=== PATIENT | female | born 1980 | race Caucasian/White ===

== ENCOUNTER 2021-12-29 15:21 | Outpatient (CLI) | payer OTHER, SELFPAY ==
--- NOTE | 2021-12-29 15:29 | MM_ITS ---
WS: [id number] BILATERAL 3D TOMOSYNTHESIS DIGITAL SCREENING MAMMOGRAPHY WITH CAD CLINICAL INFORMATION: SCREENING HISTORY: Screening mammogram. No current complaints. Baseline. COMPARISON: None. TECHNIQUE: Bilateral CC and MLO views. FINDINGS: The breasts are composed of heterogeneous fibroglandular density tissue, which can limit the detectio n of small underlying mass lesions. No suspicious mass, asymmetry, calcifications, or architectural d istortion. No evidence of malignancy. MM/[place] [id number] IMPRESSION: BI-RADS: 1-Negative FOLLOW UP: 1 Year Follow-up Recommend return to annual screening mammography.
== END 2021-12-29 15:22 | disposition home or self-care (01) ==
PROVIDERS: PCP Nurse Practitioner; Visit Provider Nurse Practitioner
DX: Z12.31 Encounter for screening mammogram for malignant neoplasm of breast (principal)
CPT/HCPCS: 77063; 77067

== ENCOUNTER 2022-08-24 13:53 | Outpatient (RCR) | payer OTHER, SELFPAY | END 2022-09-20 23:59 | disposition home or self-care (01) | LOC: SPT 13:53 | PROVIDERS: Visit Provider Nurse Practitioner | DX: M54.16 Radiculopathy, lumbar region (principal) | CPT/HCPCS: 97110; 97161 ==

== ENCOUNTER 2022-09-21 06:00 | Outpatient (RCR) | payer OTHER, SELFPAY | END 2022-10-21 23:59 | disposition home or self-care (01) | LOC: SPT 06:00 | PROVIDERS: Visit Provider Nurse Practitioner | DX: M54.18 Radiculopathy, sacral and sacrococcygeal region (principal) | CPT/HCPCS: 97110 ==

== ENCOUNTER 2023-03-29 08:14 | Outpatient (CLI) | payer OTHER, SELFPAY ==
--- NOTE | 2023-03-29 08:17 | MM_ITS ---
WS: [id number] SCREENING DIGITAL TOMOSYNTHESIS MAMMOGRAM WITH CAD HISTORY: SCREENING COMPARISON: 12/29/2021 Bilateral CC and MLO with tomosynthesis views submitted. Synthetic mammography reviewed. Computer aid ed detection analyzed. Breast composition: There are scattered areas of fibroglandular density. No suspicious masses, microc alcifications or architectural distortion. Benign calcification anterior LEFT breast. IMPRESSION: MM/[id number] BI-RADS: 2-Benign FOLLOW UP: 1 Year Follow-up
== END 2023-03-29 08:15 | disposition home or self-care (01) ==
LOC: RAD 08:15
PROVIDERS: PCP Nurse Practitioner; Visit Provider Nurse Practitioner
DX: Z12.31 Encounter for screening mammogram for malignant neoplasm of breast (principal)
CPT/HCPCS: 77063; 77067

== ENCOUNTER 2024-04-17 13:22 | Emergency (ER) | payer OTHER, SELFPAY ==
[2024-04-17 13:26] VITALS: BP 145/92; PULSE 93; RESP 17; TEMP 36.8; O2SAT 98; BMI 36.1
--- NOTE | 2024-04-17 13:31 | CT_ITS ---
WS: [id number] CT HEAD NONCONTRAST HISTORY: Symptoms of acute stroke TECHNIQUE: Contiguous axial imaging performed through the brain. Bone and soft tissue windows. Sagitt al and coronal reformats reviewed. All CT scans at [facility] use at least one of these dose optimization techniques: automated exposure control; mA and/or kV adjustment per patient size (includ es targeted exams where dose is matched to clinical indication); or iterative reconstruction. DLP: 1121.24 mGy COMPARISON: None available. No acute intracranial hemorrhage, midline shift or mass effect. No atrophy or prior infarcts or herniation. Focal calcification along the anterior interhemispheric f jane. Could be a calcified small meningioma. Ventricles: Normal size with no hydrocephalus. Paranasal sinuses: As visualized are clear. Mastoid air cells: Well pneumatized. Calvarium and scalp: Skull is intact with no soft tissue edema or swelling. CT/CT head thrombolytic [id number] IMPRESSION: Negative head CT. Notified Deven Mariano DO at 04/17/2024 1:58 PM.
--- NOTE | 2024-04-17 13:31 | ECG_ITS ---
[facility] [place] [facility] Date: 2024-04[facility]17 Pat Name: Susie Hankins Department: Room: Gender: Female Fiber Optic Assembler: : 1980 Requested By: Deven Machado Order Number: [id number] Reading MD: TRAM TIAN Measurements Intervals [place] Rate: 79 P: 37 UT: 153 QRS: 21 QRSD: 96 T: 31 QT: 341 QTc: 393 Interpretive Statements SINUS RHYTHM No previous ECG available for comparison Electronically Signed On 04-17-2024 18:53:02 CLOTH CALENDER by TRAM TIAN [email or web address]
[2024-04-17 13:54] VITALS: BP 164/107; PULSE 86; O2SAT 99
--- NOTE | 2024-04-17 14:00 | ED_ITS ---
HPI - Neuro Symptoms/Deficit 2 General: Chief Complaint: Neuro Symptoms/Deficit Stated Complaint: stroke like symp. Time Seen by Provider: 04/17/24 13:31 History of Present Illness: 44-year-old female presents emergency ro om complaining of severe dizziness feeling wobbly. She has true vertiginous like symptoms. It is better when she lays down. She denies any difficulty speech or swallowing. Initial evaluation her NIH score is 0 Associated symptoms: Deny chest pain Related Data Home Medications Medication Instructions Recorded Confirmed bupropion HCl 300 mg 24 hr tablet, 300 mg PO QAM 04/17/24 04/17/24 extended release dextromethorphan-guaifenesin ER 60 1 tab PO Q12H PRN cough and 04/17/24 04/17/24 mg-1,200 mg tab,extend congestion release,12hr (Mucinex DM) gabapentin 300 mg capsule 300 mg PO TID 04/17/24 04/17/24 hydroxyzine pamoate 50 mg capsule 50 mg PO BEDTIME PRN Insomnia 04/17/24 04/17/24 methylphenidate HCl 10 mg tablet See Rx Instructions .Route .COMPLEX 04/17/24 04/17/24 naproxen sodium 220 mg tablet 220 mg PO BID PRN Pain 04/17/24 04/17/24 (Aleve) sumatriptan succinate 100 mg tablet 100 mg PO Q2H PRN Headache 04/17/24 04/17/24 Previous Rx's Medication Instructions Recorded lorazepam 1 mg tablet (Ativan) 1 mg PO BID PRN dizziness or 04/17/24 vertigo #20 tabs meclizine 25 mg tablet 25 mg PO QID PRN dizziness #20 tabs 04/17/24 Allergies Allergy/AdvReac Type Severity Reaction Status Date / Time mercury (elemental) Allergy ALGY-Anaphy Verified 04/17/24 13:29 laxis Review of Systems 2 Const: Denies: fever(s) or chills Card: Denies: chest pain Resp: Denies: dyspnea GI: Denies: abdominal pain : Denies: dysuria, urinary frequency or urinary urgency Musc: Denies: neck pain or back pain Skin/Breast: Denies: rash NIH stroke score 2 NIHSS: Level Of Consciousness - 1a: 0 Level Of Consciousness Questions - 1b: Both Correct Level Of Consciousness Commands - 1c: Both Correct Best Gaze - 2: Normal Visual Maldonado - 3: No Visual Loss Facial Palsy - 4: N ormal Motor Arm Right - 5: No Drift Motor Arm Left - 5: No Drift Motor Leg Right - 6: No Drift Motor Leg Left - 6: No Drift Limb Ataxia - 7: A bsent Sensory - 8: Normal Best Language - 9: No Aphasia Extinction And Inattention - 11: 0 Physical Exam 2 Const: COMMON NORMALS: no acute distress GENERAL APPEARANCE: cooperative and comfortable ORIENTATION/CONSCIOUSNESS: Yes awake, Yes oriented to person, Yes oriented to place and Yes oriented to time HENMT: COMMON NORMALS: normocephalic, atraumatic and hearing grossly normal bilaterally HEAD & SCALP: normocephalic and atraumatic Resp: COMMON NORMALS: normal respiratory effort, No retractions, No use of accessory muscles and clear to auscultation bilaterally AUSCULTATION: clear to auscultation bilaterally Cardio: COMMON NORMALS: regular rate, regular rhythm and No murmurs present (Cardio) RATE: regular rate RHYTHM: regular rhythm GI: COMMON NORMALS: Soft to palpation and No hepatosplenomegaly present A USCULTATION: Yes normoactive bowel sounds PALPATION: Yes Soft to palpation, No Tenderness to palpation present (GI), No Guarding due to palpation present (GI) and Yes No hepatosplenomegaly present Extremity: COMMON NORMALS: normal to inspection, capillary refill normal, no clubbing, cyanosis or edema, no calf tenderness and no pedal edema Neuro: SENSORIUM/ORIENTATION: Yes oriented to person, Yes oriented to place and Yes oriented to time Skin: COMMON NORMALS: no rashes or lesions noted GENERAL SKIN EXAM: no rashes or lesions noted Course 2 Vital Signs: Vital signs: Vital Signs Temperature 98.3 F 04/17/24 13:26 Pulse Rate 79 04/17/24 16:33 Respiratory Rate 17 04/17/24 13:26 Blood Pressure 151/102 04/17/24 16:33 Pulse Oximetry 96 04/17/24 16:33 Oxygen Delivery Me thod Room Air 04/17/24 16:17 MDM - Neuro Symptoms/Deficit Medical Decision Making Patient is able to stand at the bedside and perform her Romberg's. No ataxia. She was able to ambulate without difficulty CT did not show any significant abnormality will discharge patient home treated for labyrinthitis she was given lorazepam and meclizine to use as needed follow-up with her primary care doctor. Lab Data 04/17/24 13:57 04/17/24 13:[address] 04/17/24 13:31 IMPRESSION: Negative head CT. Notified Deven Mariano DO at 04/17/2024 1:58 PM. Laboratory Results WBC 5.40 10^3/uL (3.29-11.43) 04/17/24 13:57 RBC 4.77 10^6/uL (3.85-5.65) 04/17/24 13:57 Hgb 12.20 g/dL (11.27-16.99) 04/17/24 13:57 Hct 38.7 % (36-47) 04/17/24 13:57 MCV 81.1 fl (85-98) L 04/17/24 13:57 MCH 25.6 pg (27-33) L 04/17/24 13:57 MCHC 31.5 g/dL (30-55) 04/17/24 13:57 RDW 16.1 % (12.1-15.1) H 04/17/24 13:57 Plt Count 323 10^3/cmm (157-399) 04/17/24 13:57 MPV 9.0 fL (7.4-10.4) 04/17/24 13:57 Neut % (Auto) 55.3 % 04/17/24 13:57 Lymph % (Auto) 32.6 % 04/17/24 13:57 [place]aves % (Auto) 7.8 % 04/17/24 13:57 Eos % (Auto) 3.0 % 04/17/24 13:57 Baso % (Auto) 1.1 % 04/17/24 13:57 Neut # (Auto) 2.99 10^3/uL (1.8-7.7) 04/17/24 13:57 Lymph # (Auto) 1.8 10^3/uL (0.8-4.8) 04/17/24 13:57 Chaves # (Auto) 0.4 10^3/uL (0.2-0.9) 04/17/24 13:57 Eos # (Auto) 0.2 10^3/uL (0.0-0.8) 04/17/24 13:57 Baso # (Auto) 0.1 10^3/uL (0.0-0.1) 04/17/24 13:57 Nucleated RBC % (auto) 0 % 04/17/24 13:57 Nucleated RBCs # 0.0 /100WBC 04/17/24 13:57 PT 12.70 SECONDS (12.1-14.9) 04/17/24 13:57 INR 0.92 (0.8-1.2) 04/17/24 13:57 APTT 27.0 SECONDS (23.9-36.7) 04/17/24 13:57 Sodium 139 mmol/L (136-145) 04/17/24 13:57 Potassium 3.6 mmol/L (3.5-5.1) 04/17/24 13:57 Chloride 103 mmol/L (98-107) 04/17/24 13:57 Carbon Dioxide 26 mmol/L (22-29) 04/17/24 13:57 Anion Gap 13.6 (5-19) 04/17/24 13:57 BUN 9 mg/dL (6-20) 04/17/24 13:57 Creatinine 0.9 mg/dL (0.5-0.9) 04/17/24 13:57 GFR Calculation 68.0 mL/min (90-130) L 04/17/24 13:57 Glucose 87 mg/dL (65-115) 04/17/24 13:57 POC Glucose 76 mg/dL (70-110) 04/17/24 13:32 Calculated Osmolality 286 mOsm/kg (285-295) 04/17/24 13:57 Calcium 8.7 mg/dL (8.5-10.5) 04/17/24 13:57 Total Bilirubin 0.4 mg/dL (0.15-1.2) 04/17/24 13:57 AST 15 U/L (0-32) 04/17/24 13:57 ALT 14 U/L (0-33) 04/17/24 13:57 Alkaline Phosphatase 65 U/L (35-105) 04/17/24 13:57 Total Protein 6.4 g/dL (6.6-8.7) L 04/17/24 13:57 Albumin 3.8 g/dL (3.5-5.2) 04/17/24 13:57 Globulin 2.6 g/dL (1.3-4.6) 04/17/24 13:57 Urine Color Yellow (Yellow) 04/17/24 16:19 Urine Appearance Clear (CLEAR) 04/17/24 16:19 Urine pH 6.5 (5-7) 04/17/24 16:19 Ur Specific [place] 1.007 (1.005-1.030) 04/17/24 16:19 Urine Protein Negative (Negative) 04/17/24 16:19 Urine Glucose (UA) Negative (Normal) 04/17/24 16:19 Urine Ketones Negative (Negative) 04/17/24 16:19 Urine Blood Negative (Negative) 04/17/24 16:19 Urine Nitrate Negative (Negative) 04/17/24 16:19 Urine Bilirubin Negative (Negative) 04/17/24 16:19 Urine Urobilinogen 1.0 mg/dL (Negative) 04/17/24 16:19 Ur Leukocyte Esterase Negative (Negative) 04/17/24 16:19 Urine RBC 0-2 /hpf (0-2) 04/17/24 16:19 Urine WBC 0-5 /hpf (0-5) 04/17/24 16:19 Ur Squamous Epith Cells 0-5 /hpf (0-5) 04/17/24 16:19 Amorphous Sediment Not Reportable 04/17/24 16:19 Urine Bacteria Trace /hpf (NONE) 04/17/24 16:19 Hyaline Casts 0-4 /lpf H 04/17/24 16:19 Urine Opiates Screen Negative ng/mL (Negative) 04/17/24 16:19 Ur Barbiturates Screen Negative ng/mL (Negative) 04/17/24 16:19 Ur Phencyclidine Scrn Negative ng/mL (Negative) 04/17/24 16:19 Ur Amphetamines Screen Negative ng/mL (Negative) 04/17/24 16:19 U Benzodiazepines Scrn Negative ng/mL (Negative) 04/17/24 16:19 Urine Cocaine Screen Negative ng/mL (Negative) 04/17/24 16:19 U Marijuana (THC) Screen Negative ng/mL (Negative) 04/17/24 16:19 All radiology interpretation(s) finalized by discharge Discharge Plan Discharge Patient Disposition: Home Clinical Impression: Labyrinthitis Condition: Stable Prescriptions: New lorazepam [Ativan] 1 mg tablet 1 mg PO BID PRN (Reason: dizziness or vertigo) Qty: 20 0RF meclizine 25 mg tablet 25 mg PO QID PRN (Reason: dizziness) Qty: 20 0RF No Action methylphenidate HCl 10 mg Tablet See Rx Instructions .ROUTE .COMPLEX Rx Instructions: Take 2 10 mg tablets in the am and 1 10mg tab at 12pm by mouth daily sumatriptan succinate 100 mg Tablet 100 mg PO Q2H PRN (Reason: Headache) Rx Instructions: do not exceed 2 doses per 24 hrs hydroxyzine pamoate 50 mg Capsule 50 mg PO BEDTIME PRN (Reason: Insomnia) naproxen sodium [Aleve] 220 mg Tablet 220 mg PO BID PRN (Reason: Pain) gabapentin 300 mg Capsule 300 mg PO TID dextromethorphan-guaifenesin [Mucinex DM] 60-1,200 mg Tablet Extended Release 12 Hr 1 tab PO Q12H PRN (Reason: cough and congestion ) bupropion HCl 300 mg Tablet Extended Release 24 Hr 300 mg PO QAM Discharge Orders: Discharge ED (Routine); Ordered 04/17/24 Ordered By: Deven Mariano Referrals: [place] Hutchinson FNP [Primary Care Provider] - Discharge Diet: Usual diet Discharge Activity: Increase activity as tolerated Patient Instructions: Labyrinthitis, Opioid Safety, Pain Management Activity Restrictions/Additional Instructions: Thank you for choosing [facility] for your healthcare needs today. It is very important that you follow up as instructed or that you return to the Emergency Department should you have concerns or if your condition changes or worsens in any way. You are seen in the emergency room for dizziness. There is no sign of a stroke CT of the head was negative. Suspect you may have in her ear issues which are causing the dizziness. We gave you Ativan and meclizine to use as needed if symptoms persist follow-up with your primary care doctor they can refer you was felt appropriate. Coding Level of Care Code ED Quarter Seamer for Demetrius Alvarez
[2024-04-17 14:08] LABS: Basophils # 0.1 10^3/uL (0.0-0.1); Basophils % 1.1 %; Eosinophils # 0.2 10^3/uL (0.0-0.8); Hematocrit 38.7 % (36-47); Lymphocytes # 1.8 10^3/uL (0.8-4.8); Lymphocytes % 32.6 %; Mean Corpuscular HGB Conc 31.5 g/dL (30-55); Mean Corpuscular Hemoglobin 25.6 pg (27-33); Mean Corpuscular Volume 81.1 fl (85-98); Monocytes # 0.4 10^3/uL (0.2-0.9); Monocytes % 7.8 %; Neutrophils # 2.99 10^3/uL (1.8-7.7); Neutrophils % 55.3 %; Nucleated Red Blood Cells % 0 %; Platelet Count 323 10^3/cmm (157-399); Red Blood Count 4.77 10^6/uL (3.85-5.65); Red Cell Distribution Width 16.1 % (12.1-15.1)
[2024-04-17 14:26] LABS: Alanine Aminotransferase 14 U/L (0-33); Albumin Level 3.8 g/dL (3.5-5.2); Alkaline Phosphatase 65 U/L (35-105); Anion Gap 13.6 (5-19); Aspartate Amino Transferase 15 U/L (0-32); Blood Urea Nitrogen 9 mg/dL (6-20); Calcium 8.7 mg/dL (8.5-10.5); Carbon Dioxide 26 mmol/L (22-29); Chloride 103 mmol/L (98-107); Creatinine Clr Calc Pharmacy 86.2003; Globulin 2.6 g/dL (1.3-4.6); Glucose 87 mg/dL (65-115); INR 0.92 (0.8-1.2); Osmolality Calculated 286 mOsm/kg (285-295); Potassium 3.6 mmol/L (3.5-5.1); Sodium 139 mmol/L (136-145); Total Bilirubin 0.4 mg/dL (0.15-1.2); Total Protein 6.4 g/dL (6.6-8.7)
[2024-04-17 14:58] VITALS: PULSE 85; O2SAT 94
--- NOTE | 2024-04-17 15:58 | PC.NURSE ---
PER VERBAL ORDER FROM DR. BARGER, ORDER AND ADMINISTER MECLIZINE 25 MG PO ONCE
[2024-04-17] MEDS: meclizine 25 mg tablet PO (16:14)
[2024-04-17 16:17] VITALS: BP 151/102; PULSE 79; O2SAT 99
[2024-04-17 16:30] LABS: Bilirubin Urine Negative (Negative); Blood Urine Negative (Negative); Glucose Urine UA Negative (Normal); Ketones Urine Negative (Negative); Leukocyte Esterase Urine Negative (Negative); Nitrate Urine Negative (Negative); Protein Urine Negative (Negative); Specific Gravity, Urine 1.007 (1.005-1.030); Urine Appearance Clear (CLEAR); Urine Color Yellow (Yellow); pH Urine 6.5 (5-7)
[2024-04-17 16:33] VITALS: BP 151/102; PULSE 79; O2SAT 96
[2024-04-17 16:35] LABS: Add Urine Microscopic? YES; Amphetamines Screen Urine Negative (Negative); Bacteria Urine Trace /hpf; Barbiturates Screen Urine Negative (Negative); Benzodiazepines Screen Urine Negative (Negative); Cocaine Screen Urine Negative (Negative); Hyaline Casts Urine 0-4 /lpf; Opiate Screen Urine Negative (Negative); PCP Screen Urine Negative (Negative); RBC Urine 0-2 /hpf (0-2); Squamous Epithelial Cell Urine 0-5 /hpf (0-5); THC Screen Urine Negative (Negative); WBC Urine 0-5 /hpf (0-5)
[2024-04-19 12:08] LABS: Glucose Point of Care 76 mg/dL (70-110)
== END 2024-04-17 16:35 | disposition home or self-care (01) ==
PROVIDERS: Emergency Provider Family Medicine; PCP Nurse Practitioner
DX: H83.09 Labyrinthitis, unspecified ear (principal)
CPT/HCPCS: 36415; 36416; 70450; 80053; 80306; 81001; 82962; 85025; 85610; 85730; 93005; 99284; J8597

== ENCOUNTER 2024-09-04 08:23 | Emergency (ER) | payer OTHER, SELFPAY ==
[2024-09-04 08:27] VITALS: BP 118/82; PULSE 75; RESP 16; TEMP 36.8; O2SAT 99; BMI 36.8
--- NOTE | 2024-09-04 08:31 | XRR_ITS ---
XR/XR forearm LT 2V [id number] PROCEDURE INFORMATION: Exam: XR Left Forearm Exam date and time: 09/04/2024 8:40 AM Age: 44 years old Clinical indication: Injury or trauma; Fall; Blunt trauma (contusions or hematomas); Arm, lower; Left TECHNIQUE: Imaging protocol: Radiologic exam of the left forearm. Views: 2 views. COMPARISON: CR XR wrist LT min 3V* [id number] 09/04/2024 8:39 AM FINDINGS/IMPRESSION: Bones/joints: There is a nondisplaced, comminuted fracture through the distal left radial metaphysis. No definite intra-articular extension of the fracture lines. There is normal alignment of the radiocarpal joint space. The proximal left radius is intact. The left ulna is intact. There is normal alignment of the left elbow. No evidence of a left elbow fracture or effusion. The carpal bones appear intact. Soft tissues: Normal.
--- NOTE | 2024-09-04 08:31 | XRR_ITS ---
XR/XR wrist LT min 3V* [id number] PROCEDURE INFORMATION: Exam: XR Left Wrist Exam date and time: 09/04/2024 8:39 AM Age: 44 years old Clinical indication: Injury or trauma; Fall; Blunt trauma (contusions or hematomas); Wrist; Left TECHNIQUE: Imaging protocol: Radiologic exam of the left wrist. Views: 3 or more views. COMPARISON: No relevant prior studies available. FINDINGS/IMPRESSION: Bones/joints: There is a comminuted, fracture through the distal left radial metaphysis. Fracture lines do not appear to involve the left radiocarpal joint space. The carpal bones are intact. The visualized portions of the left metacarpals are unremarkable. Soft tissues: Normal.
--- NOTE | 2024-09-04 08:50 | W.ED.EXTPRO ---
HPI - Extremity Problem General: Chief complaint: Extremity Injury, Upper Stated complaint: Left arm injury Time Seen by Provider: 09/04/24 08:38 History of Present Illness: 44-year-old female stumbled while gardening and has pain in her left arm. She has bruising to her forearm. She denies any other injuries when she fell. She denies any other injury. Associated symptoms: Deny chest pain, fever(s) or rash Related Data Home Medications ?Medication ?Instructions ?Recorded ?Confirmed bupropion HCl 300 mg 24 hr tablet, 300 mg PO QAM 04/17/24 09/04/24 extended release dextromethorphan-guaifenesin ER 60 1 tab PO Q12H PRN cough and 04/17/24 09/04/24 mg-1,200 mg tab,extend congestion release,12hr (Mucinex DM) gabapentin 300 mg capsule 300 mg PO TID 04/17/24 09/04/24 hydroxyzine pamoate 50 mg capsule 50 mg PO BEDTIME PRN Insomnia 04/17/24 09/04/24 methylphenidate HCl 10 mg tablet See Rx Instructions .Route .COMPLEX 04/17/24 09/04/24 naproxen sodium 220 mg tablet 220 mg PO BID PRN Pain 04/17/24 09/04/24 (Aleve) sumatriptan succinate 100 mg tablet 100 mg PO Q2H PRN Headache 04/17/24 09/04/24 Previous Rx's ?Medication ?Instructions ?Recorded hydrocodone 5 mg-acetaminophen 325 1 tab PO Q6H PRN pain #12 tabs 09/04/24 mg tablet Allergies Allergy/AdvReac Type Severity Reaction Status Date / Time mercury (elemental) Allergy ALGY-Anaphy Verified 04/17/24 13:29 laxis Review of Systems Const: Denies: fever(s) or chills Card: Denies: chest pain Resp: Denies: dyspnea GI: Denies: abdominal pain : Denies: dysuria, urinary frequency or urinary urgency Musc: Reports: joint pain and joint swelling; Denies: neck pain or back pain Skin/Breast: Denies: rash Physical Exam Const: COMMON NORMALS: no acute distress GENERAL APPEARANCE: cooperative and comfortable ORIENTATION/CONSCIOUSNESS: Yes awake, Yes oriented to person, Yes oriented to place and Yes oriented to time HENMT: COMMON NORMALS: normocephalic, atraumatic and hearing grossly normal bilaterally HEAD & SCALP: normocephalic and atraumatic Resp: COMMON NORMALS: normal respiratory effort, No retractions, No use of accessory muscles and clear to auscultation bilaterally AUSCULTATION: clear to auscultation bilaterally Cardio: COMMON NORMALS: regular rate, regular rhythm and No murmurs present (Cardio) RATE: regular rate RHYTHM: regular rhythm GI: COMMON NORMALS: Soft to palpation and No hepatosplenomegaly present AUSCULTATION: Yes normoactive bowel sounds PALPATION: Yes Soft to palpation, No Tenderness to palpation present (GI), No Guarding due to palpation present (GI) and Yes No hepatosplenomegaly present Extremity: COMMON NORMALS: capillary refill normal, no clubbing, cyanosis or edema, no calf tenderness and no pedal edema OTHER: Examination of the left wrist patient has moderate swelling at the wrist joint itself radial and ulnar pulses normal sensation normal capillary refill normal patient is able to flex and extend the finger which precipitates mild discomfort at the wrist itself Neuro: SENSORIUM/ORIENTATION: Yes oriented to person, Yes oriented to place and Yes oriented to time Skin: COMMON NORMALS: no rashes or lesions noted GENERAL SKIN EXAM: no rashes or lesions noted Course Vital Signs: Vital signs: Vital Signs Temperature 98.3 F 09/04/24 08:27 Pulse Rate 81 09/04/24 09:53 Respiratory Rate 16 09/04/24 08:27 Blood Pressure 115/79 09/04/24 09:53 Pulse Oximetry 98 09/04/24 09:53 Oxygen Delivery Me thod Room Air 09/04/24 08:27 MDM - Extremity (Nontraumatic) Medical Decision Making Acute distal radius fracture minimally displaced mildly comminuted appears stable at this time patient placed in a sugar-tong in a sling given pain medications follow-up with orthopedics for definitive care return if has further problems neuro exam time patient seen was normal I did check to cast just prior to discharge he still has good capillary refill cast is in good position adequately isolates the fracture Medical Records I reviewed the patient's medical records. Lab Data I reviewed the patient's lab results. Radiology Impressions Forearm X-Ray 09/04/24 08:31 PROCEDURE INFORMATION: Exam: XR Left Forearm Exam date and time: 09/04/2024 8:40 AM Age: 44 years old Clinical indication: Injury or trauma; Fall; Blunt trauma (contusions or hematomas); Arm, lower; Left TECHNIQUE: Imaging protocol: Radiologic exam of the left forearm. Views: 2 views. COMPARISON: CR XR wrist LT min 3V* [id number] 09/04/2024 8:39 AM FINDINGS/IMPRESSION: Bones/joints: There is a nondisplaced, comminuted fracture through the distal left radial metaphysis. No definite intra-articular extension of the fracture lines. There is normal alignment of the radiocarpal joint space. The proximal left radius is intact. The left ulna is intact. There is normal alignment of the left elbow. No evidence of a left elbow fracture or effusion. The carpal bones appear intact. Soft tissues: Normal. Wrist X-Ray 09/04/24 08:31 PROCEDURE INFORMATION: Exam: XR Left Wrist Exam date and time: 09/04/2024 8:39 AM Age: 44 years old Clinical indication: Injury or trauma; Fall; Blunt trauma (contusions or hematomas); Wrist; Left TECHNIQUE: Imaging protocol: Radiologic exam of the left wrist. Views: 3 or more views. COMPARISON: No relevant prior studies available. FINDINGS/IMPRESSION: Bones/joints: There is a comminuted, fracture through the distal left radial metaphysis. Fracture lines do not appear to involve the left radiocarpal joint space. The carpal bones are intact. The visualized portions of the left metacarpals are unremarkable. Soft tissues: Normal. All radiology interpretation(s) finalized by discharge Discharge Plan Discharge Patient Disposition: Home Clinical Impression: Closed fracture of left distal radius Condition: Stable Prescriptions: New hydrocodone-acetaminophen 5-325 mg tablet 1 tab PO Q6H PRN (Reason: pain) Qty: 12 0RF No Action methylphenidate HCl 10 mg Tablet See Rx Instructions .ROUTE .COMPLEX Rx Instructions: Take 20 mg by mouth in the am and 10mg tab at 12pm by mouth daily sumatriptan succinate 100 mg Tablet 100 mg PO Q2H PRN (Reason: Headache) Rx Instructions: do not exceed 2 doses per 24 hrs hydroxyzine pamoate 50 mg Capsule 50 mg PO BEDTIME PRN (Reason: Insomnia) naproxen sodium [Aleve] 220 mg Tablet 220 mg PO BID PRN (Reason: Pain) gabapentin 300 mg Capsule 300 mg PO TID dextromethorphan-guaifenesin [Mucinex DM] 60-1,200 mg Tablet Extended Release 12 Hr 1 tab PO Q12H PRN (Reason: cough and congestion ) bupropion HCl 300 mg Tablet Extended Release 24 Hr 300 mg PO QAM Discharge Orders: Discharge ED (Routine); Ordered 09/04/24 Ordered By: Deven Mariano Referrals: [place] Hutchinson, TRACK VEHICLE REPAIRER [Primary Care Provider] - Discharge Diet: Usual diet Discharge Activity: Limit activity as instructed Patient Instructions: Opioid Safety, Pain Management Activity Restrictions/Additional Instructions: Thank you for choosing [facility] for your healthcare needs today. It is very important that you follow up as instructed or that you return to the Emergency Department should you have concerns or if your condition changes or worsens in any way. Case management will make arrangements for you to follow-up with orthopedics. Avoid use of the left arm keep splint in place until released by orthopedics. Print Language: [place] Islander Coding Level of Care Code ED Vice President Of Talent Management for Demetrius Alvarez
--- NOTE | 2024-09-04 09:17 | DCPLANNER ---
messaged ortho for er f/u
[2024-09-04] MEDS: ketorolac 60 mg/2 mL INJ IM (09:33)
[2024-09-04 09:53] VITALS: BP 115/79; PULSE 81; O2SAT 98
== END 2024-09-04 09:58 | disposition home or self-care (01) ==
PROVIDERS: Emergency Provider Family Medicine; PCP Nurse Practitioner
DX: S52.502A Unspecified fracture of the lower end of left radius, initial encounter for closed fracture (principal); W19.XXXA Unspecified fall, initial encounter
CPT/HCPCS: 73090; 73110; 96372; 99284; J1885

== ENCOUNTER → 2024-09-07 13:06 | Outpatient (BNVA) | payer OTHER, SELFPAY | PROVIDERS: PCP Nurse Practitioner; Visit Provider Orthopaedic Surgery | DX: S52.502A Unspecified fracture of the lower end of left radius, initial encounter for closed fracture (principal); X58.XXXA Exposure to other specified factors, initial encounter | CPT/HCPCS: 73110; 99203 ==

== ENCOUNTER 2024-09-07 13:39 | Outpatient (CLI) | payer OTHER, SELFPAY | END 2024-09-07 13:40 | disposition home or self-care (01) | LOC: SOT 13:40 | PROVIDERS: PCP Nurse Practitioner; Visit Provider Orthopaedic Surgery | DX: Z46.89 Encounter for fitting and adjustment of other specified devices (principal); S52.502D Unspecified fracture of the lower end of left radius, subsequent encounter for closed fracture with routine healing; W18.30XD Fall on same level, unspecified, subsequent encounter | CPT/HCPCS: L3982 ==

== ENCOUNTER → 2024-10-10 14:11 | Outpatient (BNVA) | payer OTHER, SELFPAY | PROVIDERS: PCP Nurse Practitioner; Visit Provider Orthopaedic Surgery | DX: S52.592D Other fractures of lower end of left radius, subsequent encounter for closed fracture with routine healing (principal); X58.XXXD Exposure to other specified factors, subsequent encounter | CPT/HCPCS: 73110; 99213 ==

== ENCOUNTER → 2024-11-07 13:54 | Outpatient (BNVA) | payer OTHER, SELFPAY | PROVIDERS: PCP Nurse Practitioner; Visit Provider Orthopaedic Surgery | DX: S52.592D Other fractures of lower end of left radius, subsequent encounter for closed fracture with routine healing (principal); X58.XXXD Exposure to other specified factors, subsequent encounter | CPT/HCPCS: 73110; 99213 ==

== ENCOUNTER 2024-11-08 08:39 | Outpatient (CLI) | payer OTHER, SELFPAY ==
--- NOTE | 2024-11-08 08:42 | MM_ITS ---
WS: [id number] BILATERAL SCREENING DIGITAL TOMOSYNTHESIS MAMMOGRAM WITH CAD HISTORY: SCREENING COMPARISON: 03/29/2023, 12/29/2021 Bilateral CC and MLO views with tomosynthesis and synthetic mammography submitted. Computer aided detection analyzed. Breast composition: There are scattered areas of fibroglandular density. No suspicious masses, microcalcifications or architectural distortion. MM/MM scr BI tomosynthesis [id number] IMPRESSION: BI-RADS: 2 - Benign. FOLLOW UP: 1 Year Follow-up
== END 2024-11-08 08:40 | disposition home or self-care (01) ==
LOC: RAD 08:39
PROVIDERS: PCP Nurse Practitioner; Visit Provider Nurse Practitioner
DX: Z12.31 Encounter for screening mammogram for malignant neoplasm of breast (principal)
CPT/HCPCS: 77063; 77067